=== PATIENT | male | born 1965 ===

== ENCOUNTER 2021-03-27 07:59 | Observation (INO) | payer BC ==
[2021-03-27] MEDS ORDERED: Ondansetron 4 MG/2 ML SDV IVPUSH ONE (08:06)
[2021-03-27] MEDS ORDERED: HYDROmorphone 1 MG/ML Syringe IVPUSH ONE (08:07)
[2021-03-27] MEDS ORDERED: fentaNYL 100 MCG/2 ML SDV IVPUSH ONE (08:37)
--- NOTE | 2021-03-27 08:42 | EDM.PDOC ---
ED HPI GENERAL MEDICAL PROBLEM - General Stated Complaint: BROKE RIGHT ARM Time Seen by Provider: 03/27/21 08:15 Source of Information: Reports: Patient History Limitations: Reports: No Limitations - History of Present Illness INITIAL COMMENTS - FREE TEXT/NARRATIVE: ED ambulatory c/o pain to right arm, shoulder, tripped over cords yesterday fell landing on right shoulder, No loss of consciousness. Severe pain, crawled to couch, has not been able to move arm since fall. Muscle spasms shoulder to neck and back with movement. No prior injury. Denies significant medical hx. Energy drink this am, no solids. Occasional smoker. No home medication Right Shoulder Pain Score (Numeric/FACES): 10 - Related Data Allergies Allergy/AdvReac Type Severity Reaction Status Date / Time No Known Allergies Allergy Verified 03/27/21 08:18 Home Meds: Home Meds . [No Known Home Meds] 03/27/21 [History] Past Medical History - Past Health History Medical/Surgical History: Denies Medical/Surgical History Social & Family History - Tobacco Use Tobacco Use Status *Q: Current Status Unknown - Caffeine Use Caffeine Use: Reports: None - Recreational Drug Use Recreational Drug Use: No Review of Systems - Review of Systems Review Of Systems: Comprehensive ROS is negative, except as noted in HPI. ED EXAM, GENERAL - Physical Exam Exam: See Below Exam Limited By: No Limitations General Appearance: Alert, Moderate Distress, Other (pale diaphoretic) Eye Exam: Bilateral Eye: EOMI Ears: Normal External Exam Nose: Normal Inspection Head: Other (superficial transverse laceration left eyebrow) Neck: Non-Tender Respiratory/Chest: No Respiratory Distress, Lungs Clear, Normal Breath Sounds Cardiovascular: Normal Peripheral Pulses, Regular Rate, Rhythm, Tachycardia GI/Abdominal: Normal Bowel Sounds Back Exam: Paraspinal Tenderness ( right upper , ). No: Vertebral Tenderness Extremities: Arm Pain (right upper deformity right shoulder), Other (ecchymosis right upper arm, ). No: Normal Range of Motion Neurological: Alert, Oriented, Normal Cognition Psychiatric: Normal Affect, Normal Mood Skin Exam: Warm, Dry, Intact Course - Vital Signs Last Recorded V/S: Last Vital Signs Temp 98 F 03/30/21 04:00 Pulse 72 03/30/21 04:00 Resp 20 03/30/21 04:00 BP 144/62 H 03/30/21 04:00 Pulse Ox 99 03/30/21 04:00 - Orders/Labs/Meds Orders: Medication Orders Acetaminophen (Acetaminophen 325 Mg Tab) 650 mg PO Q6H PRN PRN Reason: Pain Ascorbic Acid (Ascorbic Acid 500 Mg Tab) 500 mg PO DAILY [facility] Last Admin: 03/29/21 08:29 Dose: 500 mg Documented by: Admin: 03/28/21 12:50 Dose: 500 mg Documented by: PANFILO Ferrous Sulfate (Ferrous Sulfate 325 Mg Tab) 325 mg PO BIDMEALS [facility] Last Admin: 03/29/21 17:30 Dose: 325 mg Documented by: Admin: 03/29/21 08:29 Dose: 325 mg Documented by: Admin: 03/28/21 17:19 Dose: 325 mg Documented by: PANFILO Hydralazine HCl (Hydralazine 25 Mg Tab) 50 mg PO Q8H [facility] Last Admin: 03/29/21 23:49 Dose: 50 mg Documented by: Admin: 03/29/21 15:31 Dose: 50 mg Documented by: Admin: 03/29/21 07:46 Dose: 50 mg Documented by: JULIO Oxycodone/Acetaminophen (Acetaminophen/Oxycodone 325-5 Mg Tab) 1 tab PO Q4H PRN PRN Reason: Pain (moderate 4-6) Last Admin: 03/29/21 22:12 Dose: 1 tab Documented by: LUCÍA Oxycodone/Acetaminophen (Acetaminophen/Oxycodone 325-5 Mg Tab) 2 tab PO Q4H PRN PRN Reason: Pain (severe 7-10) Last Admin: 03/30/21 02:24 Dose: 2 tab Documented by: Admin: 03/29/21 18:05 Dose: 2 tab Documented by: Admin: 03/29/21 14:04 Dose: 2 tab Documented by: Admin: 03/29/21 10:05 Dose: 2 tab Documented by: JULIO Senna/Docusate Sodium (Docusate Sodium/Sennosides 50-8.6 Mg Tab) 2 tab PO BEDTIME [facility] Last Admin: 03/29/21 22:12 Dose: 2 tab Documented by: Admin: 03/28/21 21:18 Dose: 2 tab Documented by: Admin: 03/27/21 21:37 Dose: 2 tab Documented by: LUCÍA Sodium Chloride (Sodium Chloride 0.9% 10 Ml Syringe) 10 ml FLUSH ASDIRECTED PRN PRN Reason: Keep Vein Open Last Admin: 03/28/21 08:08 Dose: 10 ml Documented by: Admin: 03/28/21 05:40 Dose: 10 ml Documented by: Admin: 03/28/21 01:05 Dose: 10 ml Documented by: Admin: 03/27/21 21:42 Dose: 10 ml Documented by: LUCÍA Labs: Laboratory Tests 03/27/21 03/27/21 Range/Units 09:17 09:17 WBC 12.6 H (5.0-10.0) 10^3/uL RBC 5.01 (4.6-6.2) 10^6/uL Hgb 10.9 L (14.0-18.0) g/dL Hct 35.6 L (40.0-54.0) % MCV 71.1 L (80-100) fL MCH 21.8 L (27.0-34.0) pg MCHC 30.6 L (33.0-35.0) g/dL Plt Count 267 (150-450) 10^3/uL Neut % (Auto) 72.3 (42.2-75.2) % Lymph % (Auto) 11.0 L (20.5-50.1) % Citrus % (Auto) 16.0 H (2-8) % Eos % (Auto) 0.2 L (1.0-3.0) % Baso % (Auto) 0.5 (0.0-1.0) % Sodium 136 (136-145) mmol/L Potassium 4.0 (3.5-5.1) mmol/L Chloride 100 (98-107) mmol/L Carbon Dioxide 22 (21-32) mmol/L Anion Gap 18.0 H (7-13) mEq/L BUN 17 (7-18) mg/dL Creatinine 1.41 H (0.70-1.30) mg/dL Est Cr Clr Drug Dosing 65.32 mL/min Estimated GFR (MDRD) 52 BUN/Creatinine Ratio 12.1 (No establ ref range) Glucose 135 H (70-99) mg/dL Calcium 8.6 (8.5-10.1) mg/dL Total Bilirubin 1.3 H (0.2-1.0) mg/dL AST 32 (15-37) U/L ALT 45 (16-63) U/L Alkaline Phosphatase 73 (46-116) U/L Troponin I < 0.017 (0.000-0.056) ng/mL Total Protein 8.0 (6.4-8.2) g/dL Albumin 3.7 (3.4-5.0) g/dL Globulin 4.3 Albumin/Globulin Ratio 0.9 Meds: Medications Generic Name Dose Route Start Last Admin Trade Name Freq PRN Reason Stop Dose Admin Acetaminophen 650 mg 03/29/21 16:19 Acetaminophen 325 Mg Tab PO Q6H PRN Pain Ascorbic Acid 500 mg 03/28/21 11:30 03/29/21 08:29 Ascorbic Acid 500 Mg Tab PO 500 mg DAILY [facility] Administration Ferrous Sulfate 325 mg 03/28/21 18:00 03/29/21 17:30 Ferrous Sulfate 325 Mg Tab PO 325 mg BIDMEALS [facility] Administration Hydralazine HCl 50 mg 03/29/21 07:30 03/29/21 23:49 Hydralazine 25 Mg Tab PO 50 mg Q8H [facility] Administration Oxycodone/Acetaminophen 1 tab 03/29/21 07:10 03/29/21 22:12 Acetaminophen/Oxycodone 325-5 Mg Tab PO 1 tab Q4H PRN Administration Pain (moderate 4-6) Oxycodone/Acetaminophen 2 tab 03/29/21 07:11 03/30/21 02:24 Acetaminophen/Oxycodone 325-5 Mg Tab PO 2 tab Q4H PRN Administration Pain (severe 7-10) Senna/Docusate Sodium 2 tab 03/27/21 21:00 03/29/21 22:12 Docusate Sodium/Sennosides 50-8.6 Mg Tab PO 2 tab BEDTIME [facility] Administration Sodium Chloride 10 ml 03/27/21 13:41 03/28/21 08:08 Sodium Chloride 0.9% 10 Ml Syringe FLUSH 10 ml ASDIRECTED PRN Administration Keep Vein Open Discontinued Medications Generic Name Dose Route Start Last Admin Trade Name Freq PRN Reason Stop Dose Admin Acetaminophen 975 mg 03/27/21 10:45 03/28/21 03:07 Acetaminophen 325 Mg Tab PO Not Given Q8H [facility] Acetaminophen 975 mg 03/28/21 06:00 03/29/21 05:58 Acetaminophen 325 Mg Tab PO 975 mg Q8H [facility] Administration Cyclobenzaprine HCl 10 mg 03/27/21 10:01 03/27/21 10:09 Cyclobenzaprine 10 Mg Tab PO 03/27/21 10:02 10 mg ONETIME ONE Administration Enoxaparin Sodium 40 mg 03/28/21 09:00 03/28/21 08:35 Enoxaparin 40 Mg/0.4 Ml Syringe SUBCUT 40 mg DAILY [facility] Administration Fentanyl 25 mcg 03/27/21 08:37 03/27/21 08:45 Fentanyl 100 Mcg/2 Ml Sdv IVPUSH 03/27/21 08:38 25 mcg ONETIME ONE Administration Hydromorphone HCl 1 mg 03/27/21 08:07 03/27/21 08:17 Hydromorphone 1 Mg/Ml Syringe IVPUSH 03/27/21 08:08 1 mg ONETIME ONE Administration Hydromorphone HCl 0.5 mg 03/27/21 10:43 03/28/21 22:46 Hydromorphone 1 Mg/Ml Syringe IVPUSH 0.5 mg Q2H PRN Administration rescue pain Hydromorphone HCl 6 mg 03/27/21 10:43 03/28/21 16:21 Hydromorphone 2 Mg Tab PO 6 mg Q4H PRN Administration Pain (severe 7-10) Hydromorphone HCl 4 mg 03/27/21 10:43 Hydromorphone 4 Mg Tab PO Q4H PRN Pain (moderate 4-6) Hydromorphone HCl 6 mg 03/28/21 19:45 03/29/21 06:00 Hydromorphone 4 Mg Tab PO 6 mg Q4H PRN Administration Pain (severe 7-10) Sodium Chloride 1,000 mls @ 100 mls/hr 03/28/21 07:15 03/28/21 19:39 Normal Saline IV 100 mls/hr ASDIRECTED [facility] Administration Ibuprofen 600 mg 03/27/21 20:30 03/28/21 19:49 Ibuprofen 600 Mg Tab PO 600 mg Q4H PRN Administration Pain Ondansetron HCl 4 mg 03/27/21 08:06 03/27/21 08:16 Ondansetron 4 Mg/2 Ml Sdv IVPUSH 03/27/21 08:07 4 mg ONETIME ONE Administration - Re-Assessments/Exams Free Text/Narrative Re-Assessment/Exam: 03/27/21 09:[address] Lau, sling Ortho follow up in clinic this week [phone] Departure - Departure Time of Disposition: 10:14 Disposition: Refer to Observation Condition: Good Clinical Impression: Pain, Muscle spasm Fracture, humerus closed Qualifiers: Encounter type: initial encounter Humerus Location: proximal Fracture morphology: other fracture Fracture alignment: displaced Laterality: right Qualified Code(s): S42.291A - Other displaced fracture of upper end of right humerus, initial encounter for closed fracture - Discharge Information *PRESCRIPTION DRUG MONITORING PROGRAM REVIEWED*: No *COPY OF PRESCRIPTION DRUG MONITORING REPORT IN PATIENT VINAYAK: No Sepsis Event Note (ED) - Evaluation Sepsis Screening Result: No Definite Risk
--- NOTE | 2021-03-27 08:58 | CR ---
PROCEDURE INFORMATION: Exam: XR Right Shoulder Exam date and time: 03/27/2021 8:25 AM Age: 55 years old Clinical indication: Injury or trauma; Fall; Blunt trauma (contusions or hematomas); Shoulder; Right; Additional info: Fall, yesterday, pain bruise, swollen TECHNIQUE: Imaging protocol: XR Right shoulder. Views: 2 or more views. COMPARISON: No relevant prior studies available. FINDINGS: Bones/joints: Comminuted displaced fracture of the head and neck of the right humerus. The humeral head fragment is rotated and displaced posteriorly and laterally. The bones are demineralized. Soft tissues: Normal. IMPRESSION: Comminuted displaced fracture of the head and neck of the right humerus. The the
[2021-03-27 09:49] LABS: CHLORIDE,CL 100 mmol/L (98-107); SODIUM,NA 136 mmol/L (136-145)
--- NOTE | 2021-03-27 09:55 | CT ---
PROCEDURE INFORMATION: Exam: CT Right Upper Extremity Without Contrast, Shoulder Exam date and time: 03/27/2021 9:38 AM Age: 55 years old Clinical indication: Injury or trauma; Fall; Blunt trauma (contusions or hematomas); Shoulder; Right; Injury date: 03/27/2021; Additional info: Fall FX humerus TECHNIQUE: Imaging protocol: CT of the Right upper extremity without contrast was performed. Exam focused on the shoulder. Radiation optimization: All CT scans at this facility use at least one of these dose optimization techniques: automated exposure control; mA and/or kV adjustment per patient size (includes targeted exams where dose is matched to clinical indication); or iterative reconstruction. COMPARISON: CR Shoulder Comp Rt 03/27/2021 8:25 AM FINDINGS: Bones/joints: Severely comminuted and displaced fracture head and neck right humerus. The humeral head fragment containing the articular surface is rotated posteriorly and inferiorly. The humeral shaft fragment is slightly impacted with varus angulation across the fracture. Bones are demineralized. Soft tissues: Diffuse soft tissue edema right shoulder arm, and chest wall. IMPRESSION: Severely comminuted and displaced fracture head and neck of right humerus.
[2021-03-27] MEDS ORDERED: Cyclobenzaprine 10 MG Tab PO ONE (10:01)
[2021-03-27] MEDS: Acetaminophen 325 MG Tab PO SCH ×2 (11:52→18:16)
[2021-03-27] MEDS: HYDROmorphone 2 MG Tab PO PRN ×3 (12:04→23:44)
--- NOTE | 2021-03-27 18:58 | PCM.HP ---
H&P History of Present Illness - General Date of Service: 03/27/21 Admit Problem/Dx: Admission Diagnosis/Problem Admission Diagnosis/Problem Closed fracture of head of humerus - History of Present Illness Initial Comments - Free Text/Narative: 55M who denies any pmh p/w right arm pain. Pt states he suffered a mechanical fall while doing spring cleaning. He fell onto his right arm. Denies LOC or head trauma. There is no pain in any other place. ED evaluation found a comminuted and displaced fracture of the right humeral head. ED provider d/w Dr Sid Alan and at his recommendation pt was placed in a sling and asked to follow up next week to schedule surgery. Pt was c/o intractable pain and was placed on observation. Right Shoulder Pain Score (Numeric/FACES): 10 - Related Data Allergies/Adverse Reactions: Allergies Allergy/AdvReac Type Severity Reaction Status Date / Time No Known Allergies Allergy Verified 03/27/21 08:18 Home Medications: Home Meds . [No Known Home Meds] 03/27/21 [History] Past Medical History - Past Health History Medical/Surgical History: Denies Medical/Surgical History - Infectious Disease History Infectious Disease History: Reports: None Social & Family History - Family History Family Medical History: No Pertinent Family History - Tobacco Use Tobacco Use Status *Q: Current Some Day Tobacco User Years of Tobacco use: 20 Packs/Tins Daily: 0.5 Second Hand Smoke Exposure: No - Caffeine Use Caffeine Use: Reports: Coffee - Recreational Drug Use Recreational Drug Use: No H&P Review of Systems - Review of Systems: Review Of Systems: See Below General: Denies: Fever HEENT: Denies: Headaches Pulmonary: Denies: Shortness of Breath, Cough, Sputum Cardiovascular: Denies: Chest Pain Gastrointestinal: Denies: Abdominal Pain, Diarrhea, Nausea, Vomiting Genitourinary: Denies: Dysuria Musculoskeletal: Reports: Arm Pain (right). Denies: Neck Pain Skin: Denies: Jaundice Psychiatric: Denies: Confusion Neurological: Denies: Dizziness Hematologic/Lymphatic: Denies: Easy Bleeding Exam - Exam Exam: See Below - Vital Signs Vital Signs: Last Vital Signs Temp 99.7 F 03/27/21 16:33 Pulse 85 03/27/21 16:33 Resp 12 03/27/21 16:33 BP 139/94 H 03/27/21 16:33 Pulse Ox 98 05/29/21 16:33 Weight: 218 lb 9.6 oz - Exam Quality Assessment: No: Supplemental Oxygen General: Alert, Oriented HEENT: Conjunctiva Clear Neck: Supple Lungs: Clear to Auscultation, Normal Respiratory Effort Cardiovascular: Regular Rate, Regular Rhythm GI/Abdominal Exam: Normal Bowel Sounds, Soft, Non-Tender, No Distention Back Exam: Normal Inspection Extremities: No Pedal Edema, Other (RUE in splint, ROM limited due to pain) Skin: Warm, Dry, Intact Neurological: Cranial Nerves Intact Neuro Extensive - Mental Status: Alert, Oriented x3 Neuro Extensive - Motor, Sensory, Reflexes: No: Tremor Psychiatric: Alert, Normal Affect, Normal Mood - Patient Data Lab Results Last 24 hrs: Laboratory Results - last 24 hr 03/27/21 03/27/21 03/27/21 Range/Units 09:17 09:17 10:17 WBC 12.6 H (5.0-10.0) 10^3/uL RBC 5.01 (4.6-6.2) 10^6/uL Hgb 10.9 L (14.0-18.0) g/dL Hct 35.6 L (40.0-54.0) % MCV 71.1 L (80-100) fL MCH 21.8 L (27.0-34.0) pg MCHC 30.6 L (33.0-35.0) g/dL Plt Count 267 (150-450) 10^3/uL Neut % (Auto) 72.3 (42.2-75.2) % Lymph % (Auto) 11.0 L (20.5-50.1) % Mason % (Auto) 16.0 H (2-8) % Eos % (Auto) 0.2 L (1.0-3.0) % Baso % (Auto) 0.5 (0.0-1.0) % Sodium 136 (136-145) mmol/L Potassium 4.0 (3.5-5.1) mmol/L Chloride 100 (98-107) mmol/L Carbon Dioxide 22 (21-32) mmol/L Anion Gap 18.0 H (7-13) mEq/L BUN 17 (7-18) mg/dL Creatinine 1.41 H (0.70-1.30) mg/dL Est Cr Clr Drug Dosing 65.32 mL/min Estimated GFR (MDRD) 52 BUN/Creatinine Ratio 12.1 (No establ ref range) Glucose 135 H (70-99) mg/dL Calcium 8.6 (8.5-10.1) mg/dL Total Bilirubin 1.3 H (0.2-1.0) mg/dL AST 32 (15-37) U/L ALT 45 (16-63) U/L Alkaline Phosphatase 73 (46-116) U/L Troponin I < 0.017 (0.000-0.056) ng/mL Total Protein 8.0 (6.4-8.2) g/dL Albumin 3.7 (3.4-5.0) g/dL Globulin 4.3 Albumin/Globulin Ratio 0.9 SARS-CoV-2 RNA (DONALDO) Negative (NEGATIVE) Result Diagrams: 03/27/21 09:17 03/27/21 09:17 Problem List Initiated/Reviewed/Updated: Yes Orders Last 24hrs: Active Orders 24 hr Category Date Time Status Admission Diagnosis [ADT] Stat ADT 03/27/21 10:06 Ordered Admission Status [Patient Status] [ADT] Routine ADT 03/27/21 10:06 Active Patient Status [ADT] Routine ADT 03/27/21 10:44 Active Activity as Tolerated [RC] .Routine Care 03/27/21 16:59 Active Oxygen Therapy [RC] PRN Care 03/27/21 10:44 Active VTE/DVT Education [RC] PER UNIT ROUTINE Care 03/27/21 10:44 Active Vital Signs [RC] 00,04,08,12,16,20 Care 03/27/21 10:44 Active OT Evaluation and Treatment [CONS] Routine Cons 03/27/21 10:43 Active PT Evaluation and Treatment [CONS] Routine Cons 03/27/21 10:43 Active Regular Diet [DIET] Diet 03/27/21 Lunch Active Acetaminophen [TylenoL] Med 03/27/21 10:45 Active 975 mg PO Q8H Docusate Sodium/Sennosides [Senna Plus] Med 03/27/21 21:00 Active 2 tab PO BEDTIME Enoxaparin [Lovenox] Med 03/28/21 09:00 Active 40 mg SUBCUT DAILY HYDROmorphone [Dilaudid] Med 03/27/21 10:43 Active 0.5 mg IVPUSH Q2H PRN HYDROmorphone [Dilaudid] Med 03/27/21 10:43 Active 4 mg PO Q4H PRN HYDROmorphone [Dilaudid] Med 03/27/21 10:43 Active 6 mg PO Q4H PRN Sodium Chloride 0.9% [Saline Flush] Med 03/27/21 13:41 Active 10 ml FLUSH ASDIRECTED PRN Saline Lock Insert [OM.PC] Routine Oth 03/27/21 13:41 Ordered Resuscitation Status Routine Resus Stat 03/27/21 10:43 Ordered Medication Orders Acetaminophen (Acetaminophen 325 Mg Tab) 975 mg PO Q8H [facility] Last Admin: 03/27/21 18:16 Dose: 975 mg Documented by: Admin: 03/27/21 11:52 Dose: 975 mg Documented by: MESFIN Enoxaparin Sodium (Enoxaparin 40 Mg/0.4 Ml Syringe) 40 mg SUBCUT DAILY [facility] Hydromorphone HCl (Hydromorphone 1 Mg/Ml Syringe) 0.5 mg IVPUSH Q2H PRN PRN Reason: rescue pain Hydromorphone HCl (Hydromorphone 2 Mg Tab) 6 mg PO Q4H PRN PRN Reason: Pain (severe 7-10) Last Admin: 03/27/21 18:21 Dose: 6 mg Documented by: [email or web address] Admin: 03/27/21 12:04 Dose: 6 mg Documented by: MESFIN Hydromorphone HCl (Hydromorphone 4 Mg Tab) 4 mg PO Q4H PRN PRN Reason: Pain (moderate 4-6) Senna/Docusate Sodium (Docusate Sodium/Sennosides 50-8.6 Mg Tab) 2 tab PO BEDTIME [facility] Sodium Chloride (Sodium Chloride 0.9% 10 Ml Syringe) 10 ml FLUSH ASDIRECTED PRN PRN Reason: Keep Vein Open Assessment/Plan Comment:: #right humeral head fracture - placed on obs for pain control - start scheduled tylenol and PO dilaudi w/ IV for rescue - if pain cannot be controlled he will need to be transferred for urgent surgical intervention rather than next week PPX - LMWH
[2021-03-27] MEDS: Sodium Chloride 0.9% 10 ML Syringe FLUSH PRN (21:42)
[2021-03-27] MEDS: HYDROmorphone 1 MG/ML Syringe IVPUSH PRN (21:43)
[2021-03-27] MEDS: Ibuprofen 600 MG Tab PO PRN (23:44)
[2021-03-28] MEDS: Sodium Chloride 0.9% 10 ML Syringe FLUSH PRN ×3 (01:05→08:08)
[2021-03-28] MEDS: HYDROmorphone 1 MG/ML Syringe IVPUSH PRN ×5 (01:06→22:46)
[2021-03-28] MEDS: Acetaminophen 325 MG Tab PO SCH ×4 (03:07→21:18)
[2021-03-28] MEDS: HYDROmorphone 2 MG Tab PO PRN ×3 (04:08→16:21)
[2021-03-28] MEDS: Ibuprofen 600 MG Tab PO PRN ×4 (05:38→19:49)
--- NOTE | 2021-03-28 07:20 | PCM.SN.2 ---
- Free Text/Narrative Note: START OF DOCTOR DALEMIS PROGRESS NOTE Subjective: The patient indicates that the pain of his right arm/right shoulder is well controlled. However, he indicates that he has difficulty with ambulation because the sling appears to pull on his arm/shoulder causing him pain. Overnight he denies fever, rigors, nausea, vomiting, cough, wheeze, abdominal pain, chest pain, dyspnea, or any other constitutional complaints. I explained to the patient his current medical condition and plan of care and have answered all of his questions Objective: General: -Alert -No acute distress -No dyspnea -No tachypnea Heart: -Regular rate -Regular rhythm -No murmurs -No gallops -No rubs Lungs: -No wheeze -No rhonchi -No rales Abdomen: -Normal bowel sounds in all four quadrants -No rebound -No guarding -No tenderness Extremities: -2/4 pulse in all four extremities -No clubbing -No cyanosis -No edema Additional Details / Additional Findings / Exceptions / Miscellaneous: Sensorium of bilateral upper extremities are equal and intact. The patient has 5 out of 5 bilateral upper extremity hand toggle press folder and feeder strength. Pertinent Laboratory Results / Pertinent Radiology Results / Pertinent Diagnostic Results / Pertinent Vital Signs: Vital sign stable Assessment / Plan: Right humerus comminuted and displaced fracture. Tylenol 975 mg p.o. every 8 hours. Continue as needed analgesia Microcytic anemia. Will monitor hemoglobin levels intermittently. Check serum ferritin, iron panel, fecal blood Acute renal insufficiency. Will monitor creatinine level intermittently. IV normal saline 100 mL/h Hyperbilirubinemia. Will monitor LFTs periodically with CMP. IV normal saline at one hundred and also hour Obesity. Patient will be counseled regarding lifestyle modification GI prophylaxis. Colace/senna: Two tabs p.o. nightly DVT prophylaxis. Lovenox 40 mg subcutaneously daily while monitoring hemoglobin levels Disposition: The patient may be a candidate for discharge on this day of March 28, 2021 depending on whether he is able to ambulate without pain END OF DOCTOR DALEMIS PROGRESS NOTE
[2021-03-28] MEDS: Sodium Chloride 0.9% 1,000 ML IV SCH ×2 (08:07→19:39)
[2021-03-28 08:11] LABS: ANION GAP 16.9 mEq/L (7-13)
[2021-03-28] MEDS ORDERED: Enoxaparin 40 MG/0.4 ML Syringe SUBCUT SCH (09:00)
[2021-03-28] MEDS: Ascorbic Acid 500 MG Tab PO SCH (12:50)
[2021-03-28] MEDS: Ferrous Sulfate 325 MG Tab PO SCH (17:19)
[2021-03-29] MEDS: Acetaminophen 325 MG Tab PO SCH (05:58)
[2021-03-29] MEDS ORDERED: Acetaminophen/oxyCODONE 325-5 MG Tab PO PRN (07:10)
--- NOTE | 2021-03-29 07:15 | PCM.SN.2 ---
- Free Text/Narrative Note: START OF DOCTOR DALEMIS PROGRESS NOTE Subjective: The patient currently complains of 8 out of 10 right arm/shoulder pain. Aside from this he endorses no complaints. He denies fever, rigors, nausea, vomiting, cough, wheeze, abdominal pain, chest pain, dyspnea, or any other constitutional complaints. I explained to the patient his current medical condition and plan of care and I have answered all his questions Objective: General: -Alert -No acute distress -No dyspnea -No tachypnea -Obese Heart: -Regular rate -Regular rhythm -No murmurs -No gallops -No rubs Lungs: -No wheeze -No rhonchi -No rales Abdomen: -Normal bowel sounds in all four quadrants -No rebound -No guarding -No tenderness Extremities: -2/4 pulse in all four extremities -No clubbing -No cyanosis -No edema Additional Details / Additional Findings / Exceptions / Miscellaneous: Sensorium of bilateral upper extremities are equal and intact. The patient has 5 out of 5 bilateral upper extremity hand cork wirer strength. Pertinent Laboratory Results / Pertinent Radiology Results / Pertinent Diagnostic Results / Pertinent Vital Signs: Blood pressure 148/88, pulse 75, hemoglobin 8.1, MCV 74.5 Assessment / Plan: Right humerus comminuted and displaced fracture. Neurovascular checks every 4 hours. Continue as needed analgesia Acute anemia/iron deficiency anemia. Will monitor hemoglobin levels intermittently. Fecal occult blood pending. Ferrous sulfate 305 mg p.o. twice daily plus vitamin C 500 mg p.o. daily Hypertension. Hydralazine 50 mg p.o. 3 times daily Acute renal insufficiency. Will monitor creatinine level intermittently. IV normal saline 100 mL/h Hyperbilirubinemia. Will monitor LFTs periodically with CMP. IV normal saline at one hundred and also hour Obesity. Patient will be counseled regarding lifestyle modification GI prophylaxis. Colace/senna: Two tabs p.o. nightly DVT prophylaxis. Bilateral SCD Disposition: My hope is to discharge the patient on this day of March 29, 2021 however he has had a significant drop in his hemoglobin over the last 48 hours. We will check hemoglobin level every 6 hours and if this remains stable he may potentially a candidate for discharge on this day of March 29, 2021. Also, I am monitoring the patient's creatinine as well END OF DOCTOR DALEMIS PROGRESS NOTE
[2021-03-29 07:25] LABS: ANION GAP 14.7 mEq/L (7-13); CHLORIDE,CL 103 mmol/L (98-107); SODIUM,NA 138 mmol/L (136-145)
[2021-03-29] MEDS: hydrALAZINE 25 MG Tab PO SCH ×3 (07:46→23:49)
[2021-03-29] MEDS: Ferrous Sulfate 325 MG Tab PO SCH ×2 (08:29→17:30)
[2021-03-29] MEDS: Ascorbic Acid 500 MG Tab PO SCH (08:29)
[2021-03-29] MEDS: Acetaminophen/oxyCODONE 325-5 MG Tab PO PRN ×3 (10:05→18:05)
[2021-03-29] MEDS ORDERED: Acetaminophen 325 MG Tab PO PRN (16:19)
[2021-03-30] MEDS: Acetaminophen/oxyCODONE 325-5 MG Tab PO PRN ×2 (02:24→08:45)
--- NOTE | 2021-03-30 07:11 | PCM.SN.2 ---
- Free Text/Narrative Note: START OF DOCTOR EMAMIS DISCHARGE SUMMARY Date of Admission: March 27, 2021 Date of Discharge: 7:09 AM on March 30, 2021 Primary Diagnosis: Right humerus comminuted and displaced fracture Secondary Diagnosis: Acute anemia/iron deficiency anemia Hypertension Acute renal insufficiency, resolved Hyperbilirubinemia, resolved Obesity Consultations: None Condition on Discharge: Fair Disposition: The patient will be advised to follow-up with orthopedic surgery within 1 week of discharge for assessment of right humerus comminuted and displaced fracture The patient will require check of hemoglobin 40s post discharge for diagnosis of anemia Discharge Medications: Hydralazine 75 mg p.o. every 8 hours Ferrous sulfate 325 mg p.o. twice daily Vitamin C 500 mg p.o. daily Percocet 5/325 m-2 tabs p.o. every 4 hours as needed pain. Quantity 30. 0 refills END OF DOCTOR EMAMIS DISCHARGE SUMMARY
[2021-03-30 07:29] LABS: ANION GAP 15.7 mEq/L (7-13); CHLORIDE,CL 103 mmol/L (98-107); SODIUM,NA 139 mmol/L (136-145)
[2021-03-30] MEDS ORDERED: hydrALAZINE 25 MG Tab PO SCH (08:00)
[2021-03-30] MEDS: Ferrous Sulfate 325 MG Tab PO SCH (08:40)
[2021-03-30] MEDS: Ascorbic Acid 500 MG Tab PO SCH (08:40)
== END 2021-03-30 09:30 | disposition home or self-care (01) ==
LOC: DL.ED 07:59 → DL.MS 10:06
PROVIDERS: ADMIT Internal Medicine; ATTEND Internal Medicine
DX: S42.291A Other displaced fracture of upper end of right humerus, initial encounter for closed fracture (principal); D50.9 Iron deficiency anemia, unspecified; I10 Essential (primary) hypertension; E66.9 Obesity, unspecified; Z20.822 Contact with and (suspected) exposure to COVID-19; W19.XXXA Unspecified fall, initial encounter; Z68.28 Body mass index [BMI] 28.0-28.9, adult
CPT/HCPCS: 36415; 73030-RT; 73200-RT; 80053; 82728; 83540; 83550; 84484; 85018; 85025; 99284; A9270-GY; J1170; J1650; J2405; J3010; J7030; U0002

== ENCOUNTER 2023-01-09 16:33 | Observation (INO) | payer BC ==
[2023-01-09] MEDS ORDERED: Sodium Chloride 0.9% 1,000 ML IV ONE ×2 (16:51→17:44)
[2023-01-09 17:26] LABS: ANION GAP 27.6 mEq/L (7-13); CHLORIDE,CL 95 mmol/L (98-107); SODIUM,NA 131 mmol/L (136-145)
[2023-01-09 17:36] LABS: ESTIMATED GFR 43 mL/min (>=60)
[2023-01-09] MEDS ORDERED: Diphtheria,Pertussis(Acell),Tetanus Vaccine 0.5 ML Syringe IM ONE (18:08)
[2023-01-09] MEDS ORDERED: Docusate Sodium 100 MG Cap PO PRN (20:26)
[2023-01-09] MEDS ORDERED: Ondansetron 4 MG/2 ML SDV IVPUSH PRN (20:26)
[2023-01-09] MEDS ORDERED: Sodium Chloride 0.9% 1,000 ML IV SCH (20:30)
[2023-01-09] MEDS ORDERED: Enoxaparin 40 MG/0.4 ML Syringe SUBCUT SCH (21:00)
[2023-01-09] MEDS: Acetaminophen/HYDROcodone 325-5 MG Tab PO PRN (21:48)
[2023-01-10] MEDS: Acetaminophen 325 MG Tab PO PRN ×4 (02:36→19:17)
[2023-01-10] MEDS: Acetaminophen/HYDROcodone 325-5 MG Tab PO PRN ×3 (02:36→19:18)
[2023-01-10 04:13] LABS: AMPHETAMINES,URINE NEGATIVE (NEGATIVE); BARBITURATES,URINE NEGATIVE (NEGATIVE); BENZODIAZEPINE,URINE NEGATIVE (NEGATIVE); MDMA (ECSTASY), URINE NEGATIVE (NEGATIVE); METHADONE,URINE NEGATIVE (NEGATIVE); METHAMPHETAMINES,URINE NEGATIVE (NEGATIVE); OPIATES,URINE POSITIVE (NEGATIVE); OXYCODONE,URINE NEGATIVE (NEGATIVE); PHENCYCLIDINE,URINE NEGATIVE (NEGATIVE); TCA,URINE NEGATIVE (NEGATIVE)
[2023-01-10 07:37] LABS: ANION GAP 14.5 mEq/L (7-13)
[2023-01-10] MEDS: HYDROmorphone 0.5 MG/0.5 ML Syringe IVPUSH PRN ×2 (11:10→17:02)
[2023-01-10] MEDS ORDERED: Enoxaparin 40 MG/0.4 ML Syringe SUBCUT SCH (21:00)
[2023-01-10] MEDS ORDERED: HYDROmorphone 0.5 MG/0.5 ML Syringe IVPUSH ONE (22:05)
[2023-01-11] MEDS: Acetaminophen/HYDROcodone 325-5 MG Tab PO PRN (00:03)
[2023-01-11] MEDS ORDERED: hydrALAZINE 20 MG/ML SDV IVPUSH PRN (09:51)
[2023-01-11] MEDS ORDERED: Pneumococcal 20-Valent Conjug 0.5 ML Syringe IM ONE (10:15)
[2023-01-11] MEDS ORDERED: amLODIPine 5 MG Tab PO ONE (10:37)
[2023-01-11] MEDS ORDERED: cloNIDine 0.1 MG Tab PO ONE (10:37)
== END 2023-01-11 11:57 | disposition home or self-care (01) ==
LOC: DL.ED 16:33 → DL.MS 19:44 → UNDODISOB 01-11 11:57
PROVIDERS: ADMIT Internal Medicine; ATTEND Internal Medicine
DX: T68.XXXA Hypothermia, initial encounter (principal); T33.522A Superficial frostbite of left hand, initial encounter; T33.521A Superficial frostbite of right hand, initial encounter; R74.02 Elevation of levels of lactic acid dehydrogenase [LDH]; D50.9 Iron deficiency anemia, unspecified; I10 Essential (primary) hypertension; F17.210 Nicotine dependence, cigarettes, uncomplicated; Z23 Encounter for immunization; X31.XXXA Exposure to excessive natural cold, initial encounter; W19.XXXA Unspecified fall, initial encounter
CPT/HCPCS: 36415; 80048; 80053; 80305-QW; 80307; 81001; 82550; 83605; 84484; 85025; 86140; 90471; 90677; 90686; 90715; 93005; 93010; 96360; 96361; 96372; 96374; 96376; 97161-GP; 97165-GO; 99222; 99232; 99238; 99284; 99284-25; A9270-GY; G0008; G0009; G0378; J1170; J1650; J7030

== ENCOUNTER 2023-07-10 14:57 | Inpatient (IN) | payer BC, MEDICAID ==
[~2023-07-10 14:57] MED LIST: Sodium Chloride 0.9% 10 ML Syringe FLUSH PRN
[2023-07-10 15:13] LABS: HEMATOCRIT 32.9 % (40.0-54.0); HEMOGLOBIN 9.8 g/dL (14.0-18.0); MEAN CORPUSCULAR HEMOGLOBIN 23.1 pg (27.0-34.0); MEAN CORPUSCULAR HGB CONC 29.8 g/dL (33.0-35.0); MEAN CORPUSCULAR VOLUME 77.6 fL (80-100); PLATELET COUNT,PLT 329 10^3/uL (150-450); RED BLOOD CELL COUNT 4.24 10^6/uL (4.6-6.2); WHITE BLOOD CELL COUNT,WBC 22.5 10^3/uL (5.0-10.0)
[2023-07-10 15:15] LABS: BASOPHILS PERCENT AUTO 0.1 % (0.0-1.0); EOSINOPHILS PERCENT AUTO 0.5 % (1.0-3.0); LYMPHOCYTES PERCENT AUTO 28.5 % (20.5-50.1); MONOCYTES PERCENT AUTO 10.3 % (2-8); NEUTROPHILS PERCENT AUTO 60.6 % (42.2-75.2)
[2023-07-10 15:29] LABS: AMYLASE 104 U/L (25-115); BAND PERCENT MAN 1 %; LIPASE 54 U/L (16-77); LYMPHOCYTES PERCENT MAN 23 % (20-50); MONOCYTES PERCENT MAN 10 % (2-8); SEG NEUTROPHILS PERCENT MAN 66 % (42-75)
[2023-07-10 15:35] LABS: B-TYPE NATRIURETIC PEPTIDE,BNP 559 pg/ml (0-100); INR 1.1 (0.9-1.2); PROTHROMBIN TIME 10.8 SEC (9.0-12.0)
[2023-07-10 15:52] LABS: APPEARANCE,URINE CLEAR (CLEAR); BILIRUBIN,URINE NEGATIVE (NEGATIVE); COLOR,URINE YELLOW (YELLOW); GLUCOSE,URINE 100 (NEGATIVE); KETONES,URINE 15 (NEGATIVE); LEUKOCYTE ESTERASE,URINE NEGATIVE (NEGATIVE); NITRITE,URINE NEGATIVE (NEGATIVE); OCCULT BLOOD,URINE TRACE-INTACT (NEGATIVE); PH,URINE 7.5 (5.0-9.0); PROTEIN,URINE 30 (NEGATIVE); UROBILINOGEN,URINE >=8.0 mg/dL (0.2-1.0)
[2023-07-10 15:53] LABS: LACTIC ACID 23.7 mmol/L (0.4-2.0)
[2023-07-10 16:02] LABS: BACTERIA,URINE MODERATE /HPF (0-FEW/HPF); EPITHELIAL CELLS,URINE FEW /HPF (NOT SEEN); MUCUS,URINE FEW /LPF (NOT SEEN); RBC,URINE 0-5 /HPF (0-5)
[2023-07-10 16:14] LABS: O2 DELIVERY DEVICE NASAL CANNULA
[2023-07-10 16:15] LABS: BASE EXCESS ARTERIAL -19 mmol/L ((-2)-(+3)); BICARBONATE,ARTERIAL 7.6 mmol/L (22-26); O2 SATURATION ARTERIAL 99 % (95-100); PH,ARTERIAL 7.23 (7.35-7.45); PO2 ARTERIAL 213 mmHg (70-100)
[2023-07-10 16:17] LABS: PCO2 ARTERIAL 19 mmHg (35-45)
[2023-07-10 16:18] LABS: ALLEN TEST POSITIVE
[2023-07-10] MEDS: Sodium Chloride 0.9% 1,000 ML IV ONE ×2 (16:19→19:56)
[2023-07-10 16:42] LABS: LACTIC ACID 15.6 mmol/L (0.4-2.0)
[2023-07-10 16:51] LABS: A/G RATIO 0.71; ALANINE AMINOTRANSFERASE,ALT 25 U/L (16-63); ALBUMIN 2.5 g/dL (3.4-5.0); ALKALINE PHOSPHATASE 67 U/L (46-116); ANION GAP 27.8 mEq/L (7-13); ASPARTATE AMNIOTRANSFERASE,AST 32 U/L (15-37); BILIRUBIN TOTAL 0.6 mg/dL (0.2-1.0); BLOOD UREA NITROGEN,BUN 35 mg/dL (7-18); BUN/CREATININE RATIO 23.3 (No establ ref range); CALCIUM 7.8 mg/dL (8.5-10.1); CARBON DIOXIDE,CO2 11 mmol/L (21-32); CHLORIDE,CL 103 mmol/L (98-107); EST CRCL DRUG DOSING (CG) 60.89 mL/min; ESTIMATED GFR 53 mL/min (>=60); GLUCOSE RANDOM 157 mg/dL (70-99); POTASSIUM,K 3.8 mmol/L (3.5-5.1); SODIUM,NA 138 mmol/L (136-145)
[2023-07-10 17:08] LABS: C-REACTIVE PROTEIN 2.62 ng/dL (<=0.30); ETHANOL BLOOD MEDICAL < 3 mg/dL (0)
[2023-07-10] MEDS ORDERED: Iopamidol 755 Mg/ML 100 ML Bottle IVPUSH ONE (17:31)
[2023-07-10 17:37] LABS: AMPHETAMINES,URINE NEGATIVE (NEGATIVE); BARBITURATES,URINE NEGATIVE (NEGATIVE); BENZODIAZEPINE,URINE NEGATIVE (NEGATIVE); MDMA (ECSTASY), URINE NEGATIVE (NEGATIVE); METHADONE,URINE NEGATIVE (NEGATIVE); METHAMPHETAMINES,URINE NEGATIVE (NEGATIVE); OPIATES,URINE NEGATIVE (NEGATIVE); OXYCODONE,URINE NEGATIVE (NEGATIVE); PHENCYCLIDINE,URINE NEGATIVE (NEGATIVE); TCA,URINE NEGATIVE (NEGATIVE)
[2023-07-10] MEDS ORDERED: Piperacillin/Tazobactam 4.5 GM in Sodium Chloride 0.9% 100 ML IV ONE (17:45)
[2023-07-10] MEDS ORDERED: cefTRIAXone 2 GM Vial IVPUSH ONE (17:47)
[2023-07-10] MEDS ORDERED: Ondansetron 4 MG Tab.DIS PO PRN (19:13)
[2023-07-10] MEDS ORDERED: Acetaminophen 325 MG Tab PO PRN (19:13)
[2023-07-10] MEDS ORDERED: Zolpidem 5 MG Tab PO PRN (19:13)
[2023-07-10] MEDS ORDERED: Sodium Chloride 0.9% 1,000 ML IV SCH ×2 (19:15→19:30)
[2023-07-10] MEDS ORDERED: Sodium Chloride 0.9% 1,000 ML IV ONE (21:45)
[2023-07-11 06:18] LABS: BASOPHILS PERCENT AUTO 0.2 % (0.0-1.0); HEMATOCRIT 21.2 % (40.0-54.0); LYMPHOCYTES PERCENT AUTO 9.2 % (20.5-50.1); MEAN CORPUSCULAR HEMOGLOBIN 23.1 pg (27.0-34.0); MEAN CORPUSCULAR HGB CONC 31.1 g/dL (33.0-35.0); MEAN CORPUSCULAR VOLUME 74.1 fL (80-100); MONOCYTES PERCENT AUTO 13.3 % (2-8); NEUTROPHILS PERCENT AUTO 77.3 % (42.2-75.2); PLATELET COUNT,PLT 154 10^3/uL (150-450); RED BLOOD CELL COUNT 2.86 10^6/uL (4.6-6.2); WHITE BLOOD CELL COUNT,WBC 8.2 10^3/uL (5.0-10.0)
[2023-07-11 06:24] LABS: HEMOGLOBIN 6.6 g/dL (14.0-18.0)
[2023-07-11] MEDS: Budesonide 0.5 MG/2 ML Neb Susp NEB SCH ×2 (06:26→07:50)
[2023-07-11] MEDS: Albuterol 0.083% 2.5 MG/3 ML Neb Soln NEB PRN ×3 (06:27→13:47)
[2023-07-11 06:31] LABS: ANION GAP 14.3 mEq/L (7-13); CALCIUM 7.3 mg/dL (8.5-10.1); CREATININE 1.26 mg/dL (0.70-1.30); EST CRCL DRUG DOSING (CG) 66.4 mL/min; POTASSIUM,K 3.3 mmol/L (3.5-5.1)
[2023-07-11] MEDS ORDERED: Furosemide 40 MG/4 ML VIAL IVPUSH ONE (09:21)
[2023-07-11] MEDS ORDERED: Potassium Chloride 10 MEQ Tab.ER PO SCH (09:30)
[2023-07-11 09:44] LABS: O2 DELIVERY DEVICE ROOM AIR
[2023-07-11 09:48] LABS: BASE EXCESS VENOUS -7.5 mmol/l ((-2)-(+3)); BICARBONATE,VENOUS 16 mmol/l (19-25); O2 SATURATION VENOUS 55.3 % (60-80); PCO2 VENOUS 27 mmHg (41-51); PH,VENOUS 7.39 (7.31-7.41); PO2 VENOUS 34 mmHg (35-42)
[2023-07-11 09:52] LABS: HEMATOCRIT 20.4 % (40.0-54.0); HEMOGLOBIN 6.3 g/dL (14.0-18.0)
[2023-07-11 10:31] LABS: FOLIC ACID 8.1 ng/mL (8.6-58.9); MAGNESIUM 2.2 mg/dL (1.8-2.4)
[2023-07-11] MEDS ORDERED: Furosemide 40 MG/4 ML VIAL IVPUSH PRN (10:31)
[2023-07-11 10:34] LABS: PERCENT FE SATURATION 3.4 % (20.0-50.0)
[2023-07-11 11:08] LABS: INR 1.1 (0.9-1.2); PROTHROMBIN TIME 11.3 SEC (9.0-12.0)
[2023-07-11] MEDS ORDERED: Pantoprazole 40 MG Vial IVPUSH STA (11:37)
[2023-07-11] MEDS ORDERED: Pantoprazole 40 MG Vial IVPUSH SCH (20:00)
== END 2023-07-11 15:30 | DRG 392 ==
LOC: DL.ED 14:57 → DL.MS 17:53
PROVIDERS: ADMIT Hospitalist; ATTEND Hospitalist
PROC: 4A033R1 Measurement of Arterial Saturation, Peripheral, Percutaneous Approach (ICD-10-PCS; 2023-07-10)
PROC: 30233N1 Transfusion of Nonautologous Red Blood Cells into Peripheral Vein, Percutaneous Approach (ICD-10-PCS; principal; 2023-07-11)
DX: A05.9 Bacterial foodborne intoxication, unspecified (principal); K92.2 Gastrointestinal hemorrhage, unspecified; D62 Acute posthemorrhagic anemia; N17.9 Acute kidney failure, unspecified; E87.20 Acidosis, unspecified; I95.89 Other hypotension; E86.1 Hypovolemia; E86.0 Dehydration; J44.9 Chronic obstructive pulmonary disease, unspecified; Z72.0 Tobacco use
CPT/HCPCS: 36415; 36430; 36600; 51702; 70450; 71260; 74177; 80048; 80053; 80179; 80305-QW; 80307; 81001; 82150; 82272; 82550; 82607; 82728; 82746; 82803; 83540; 83550; 83605; 83690; 83735; 83880; 84484; 85014; 85018; 85025; 85610; 86140; 86850; 86900; 86901; 86920; 86922; 87040; 93005; 93010; 94010; 94060; 94640; 94667; 94668; 94760; 99222; 99239; 99284; 99285; A9270-GY; C9113; J0696; J1940; J3490; J7030; J7613-GY; P9016; Q9967

== ENCOUNTER 2023-10-28 20:34 | Inpatient (IN) | payer MEDICAID ==
[2023-10-28 20:52] LABS: BASOPHILS PERCENT AUTO 0.2 % (0.0-1.0); EOSINOPHILS PERCENT AUTO 0.8 % (1.0-3.0); HEMATOCRIT 35.5 % (40.0-54.0); HEMOGLOBIN 10.8 g/dL (14.0-18.0); LYMPHOCYTES PERCENT AUTO 23.1 % (20.5-50.1); MEAN CORPUSCULAR HEMOGLOBIN 21.2 pg (27.0-34.0); MEAN CORPUSCULAR HGB CONC 30.4 g/dL (33.0-35.0); MEAN CORPUSCULAR VOLUME 69.6 fL (80-100); MONOCYTES PERCENT AUTO 14.7 % (2-8); NEUTROPHILS PERCENT AUTO 61.2 % (42.2-75.2); PLATELET COUNT,PLT 242 10^3/uL (150-450)
[2023-10-28 21:17] LABS: A/G RATIO 0.7; ALBUMIN 3.6 g/dL (3.4-5.0); ANION GAP 17.8 mEq/L (7-13); BUN/CREATININE RATIO 7.9 (No establ ref range); CALCIUM 9.2 mg/dL (8.5-10.1); CREATININE 1.27 mg/dL (0.70-1.30); EST CRCL DRUG DOSING (CG) 67.89 mL/min; POTASSIUM,K 3.8 mmol/L (3.5-5.1); PROTEIN TOTAL,TP 8.6 g/dL (6.4-8.2)
[2023-10-28 21:52] LABS: CORONAVIRUS COVID-19 NAA NEGATIVE (NEGATIVE); INFLUENZA A NAA NEGATIVE (NEGATIVE); INFLUENZA B NAA NEGATIVE (NEGATIVE); RESPIRATORY SYNCYTIAL VIR NAA NEGATIVE (NEGATIVE)
[2023-10-28] MEDS ORDERED: Iopamidol 755 Mg/ML 100 ML Bottle IVPUSH ONE (23:04)
[2023-10-28] MEDS ORDERED: Enoxaparin 80 MG/0.8 ML Syringe SUBCUT ONE (23:05)
[2023-10-29] MEDS ORDERED: Heparin Sodium/0.45% NaCl 25,000 UNITS/500 ML BAG IV SCH (01:45)
[2023-10-29] MEDS ORDERED: oxyCODONE 5 MG Tab PO PRN (02:11)
[2023-10-29] MEDS ORDERED: Docusate Sodium 100 MG Cap PO PRN (02:11)
[2023-10-29] MEDS ORDERED: Ondansetron 4 MG Tab.DIS PO PRN (02:11)
[2023-10-29 02:36] LABS: PROTHROMBIN TIME 10.4 SEC (9.0-12.0)
[2023-10-29] MEDS: Sodium Chloride 0.9% 1,000 ML IV SCH ×2 (03:13→19:14)
[2023-10-29] MEDS: Pantoprazole 40 MG Tab.CR PO SCH ×2 (07:39→16:10)
[2023-10-29] MEDS: Sucralfate Suspension 1 GM/10 ML Cup PO SCH ×3 (07:39→16:10)
[2023-10-29] MEDS: Enoxaparin 40 MG/0.4 ML Syringe SUBCUT SCH ×2 (09:53→21:22)
[2023-10-29] MEDS ORDERED: FLU (Fluarix Quad) QS2023-24(6MOS UP)/PF 60 MCG/0.5 ML Syringe IM ONE (10:00)
[2023-10-29] MEDS ORDERED: Warfarin 5 MG, Warfarin 2.5 MG PO SCH ×2 (14:00)
[2023-10-30] MEDS: Sodium Chloride 0.9% 1,000 ML IV SCH ×3 (03:14→20:05)
[2023-10-30] MEDS: Pantoprazole 40 MG Tab.CR PO SCH ×2 (06:19→15:46)
[2023-10-30] MEDS: Sucralfate Suspension 1 GM/10 ML Cup PO SCH ×3 (06:19→15:46)
[2023-10-30 06:47] LABS: BASOPHILS PERCENT AUTO 0.3 % (0.0-1.0); EOSINOPHILS PERCENT AUTO 3.3 % (1.0-3.0); HEMATOCRIT 25.4 % (40.0-54.0); HEMOGLOBIN 7.6 g/dL (14.0-18.0); LYMPHOCYTES PERCENT AUTO 32.6 % (20.5-50.1); MEAN CORPUSCULAR HEMOGLOBIN 21.3 pg (27.0-34.0); MEAN CORPUSCULAR HGB CONC 29.9 g/dL (33.0-35.0); MEAN CORPUSCULAR VOLUME 71.1 fL (80-100); MONOCYTES PERCENT AUTO 18.8 % (2-8); PLATELET COUNT,PLT 174 10^3/uL (150-450); RED BLOOD CELL COUNT 3.57 10^6/uL (4.6-6.2); WHITE BLOOD CELL COUNT,WBC 3.6 10^3/uL (5.0-10.0)
[2023-10-30 06:54] LABS: ANION GAP 12.7 mEq/L (7-13); CALCIUM 7.9 mg/dL (8.5-10.1); CREATININE 0.9 mg/dL (0.70-1.30); EST CRCL DRUG DOSING (CG) 98.64 mL/min; POTASSIUM,K 3.7 mmol/L (3.5-5.1); PROTHROMBIN TIME 10.6 SEC (9.0-12.0)
[2023-10-30] MEDS: Enoxaparin 40 MG/0.4 ML Syringe SUBCUT SCH ×2 (08:32→20:07)
[2023-10-30] MEDS ORDERED: Warfarin 5 MG Tab PO SCH (09:00)
[2023-10-30] MEDS ORDERED: Warfarin 5 MG, Warfarin 2.5 MG PO ONE ×2 (14:00)
[2023-10-31] MEDS: Sodium Chloride 0.9% 1,000 ML IV SCH ×3 (04:42→21:40)
[2023-10-31] MEDS: Acetaminophen 325 MG Tab PO PRN ×2 (04:46→22:50)
[2023-10-31] MEDS: Pantoprazole 40 MG Tab.CR PO SCH ×3 (04:46→15:16)
[2023-10-31] MEDS: Sucralfate Suspension 1 GM/10 ML Cup PO SCH ×4 (04:47→15:16)
[2023-10-31 06:32] LABS: HEMATOCRIT 24.2 % (40.0-54.0); MEAN CORPUSCULAR HEMOGLOBIN 20.7 pg (27.0-34.0); MEAN CORPUSCULAR HGB CONC 28.9 g/dL (33.0-35.0); MEAN CORPUSCULAR VOLUME 71.6 fL (80-100); PLATELET COUNT,PLT 148 10^3/uL (150-450); RED BLOOD CELL COUNT 3.38 10^6/uL (4.6-6.2); WHITE BLOOD CELL COUNT,WBC 3.9 10^3/uL (5.0-10.0)
[2023-10-31 06:37] LABS: BASOPHILS PERCENT AUTO 0.3 % (0.0-1.0); EOSINOPHILS PERCENT AUTO 1.8 % (1.0-3.0); LYMPHOCYTES PERCENT AUTO 30.4 % (20.5-50.1); MONOCYTES PERCENT AUTO 20.3 % (2-8); NEUTROPHILS PERCENT AUTO 47.2 % (42.2-75.2)
[2023-10-31 07:02] LABS: INR 1.1 (0.9-1.2); PROTHROMBIN TIME 11.6 SEC (9.0-12.0)
[2023-10-31] MEDS: Enoxaparin 40 MG/0.4 ML Syringe SUBCUT SCH ×2 (08:12→20:15)
[2023-10-31 08:48] LABS: BAND PERCENT MAN 6 %; EOSINOPHILS PERCENT MAN 1 % (1-3); LYMPHOCYTES PERCENT MAN 30 % (20-50); MONOCYTES PERCENT MAN 9 % (2-8); SEG NEUTROPHILS PERCENT MAN 54 % (42-75)
[2023-10-31] MEDS ORDERED: Warfarin 5 MG Tab PO ONE (14:00)
[2023-10-31] MEDS ORDERED: Warfarin 2.5 MG Tab PO ONE (15:52)
[2023-11-01] MEDS: Pantoprazole 40 MG Tab.CR PO SCH ×2 (05:17→16:02)
[2023-11-01] MEDS: Sucralfate Suspension 1 GM/10 ML Cup PO SCH ×3 (05:17→16:03)
[2023-11-01] MEDS: Sodium Chloride 0.9% 1,000 ML IV SCH (05:18)
[2023-11-01 07:18] LABS: INR 1.5 (0.9-1.2); PROTHROMBIN TIME 15.5 SEC (9.0-12.0)
[2023-11-01] MEDS: Enoxaparin 40 MG/0.4 ML Syringe SUBCUT SCH ×2 (08:38→21:27)
[2023-11-01] MEDS ORDERED: Warfarin 5 MG Tab PO ONE (14:00)
[2023-11-01] MEDS ORDERED: Warfarin 2.5 MG Tab PO ONE (14:00)
[2023-11-01 17:24] LABS: BASOPHILS PERCENT AUTO 0.3 % (0.0-1.0); HEMATOCRIT 28.5 % (40.0-54.0); HEMOGLOBIN 8.5 g/dL (14.0-18.0); LYMPHOCYTES PERCENT AUTO 24.4 % (20.5-50.1); MEAN CORPUSCULAR HEMOGLOBIN 21.2 pg (27.0-34.0); MEAN CORPUSCULAR HGB CONC 29.8 g/dL (33.0-35.0); MEAN CORPUSCULAR VOLUME 71.1 fL (80-100); MONOCYTES PERCENT AUTO 16.3 % (2-8); PLATELET COUNT,PLT 223 10^3/uL (150-450); RED BLOOD CELL COUNT 4.01 10^6/uL (4.6-6.2); WHITE BLOOD CELL COUNT,WBC 6.3 10^3/uL (5.0-10.0)
[2023-11-01] MEDS: Acetaminophen 325 MG Tab PO PRN (19:43)
[2023-11-02] MEDS: Acetaminophen 325 MG Tab PO PRN (00:08)
[2023-11-02] MEDS: Pantoprazole 40 MG Tab.CR PO SCH (05:05)
[2023-11-02] MEDS: Sucralfate Suspension 1 GM/10 ML Cup PO SCH ×2 (05:05→11:07)
[2023-11-02 06:34] LABS: INR 2.4 (0.9-1.2); PROTHROMBIN TIME 23.6 SEC (9.0-12.0)
[2023-11-02] MEDS: Enoxaparin 40 MG/0.4 ML Syringe SUBCUT SCH (08:26)
[2023-11-02] MEDS ORDERED: Warfarin 5 MG Tab PO ONE (14:00)
== END 2023-11-02 14:05 | disposition home or self-care (01) | DRG 176 ==
LOC: DL.ED 20:34 → DL.MS 10-29 01:24 → UNDOADMIN 10-29 01:24 → DL.MS 10-29 02:11
PROVIDERS: ADMIT Internal Medicine; ATTEND Internal Medicine
DX: I26.99 Other pulmonary embolism without acute cor pulmonale (principal); I82.412 Acute embolism and thrombosis of left femoral vein; I10 Essential (primary) hypertension; E78.5 Hyperlipidemia, unspecified; D50.9 Iron deficiency anemia, unspecified; K20.90 Esophagitis, unspecified without bleeding; Z91.148 Patient's other noncompliance with medication regimen for other reason
CPT/HCPCS: 0241U; 36415; 71045; 71260; 74177; 80048; 80053; 84484; 85025; 85379; 85610; 85730; 93005; 93970; 99285; A9270-GY; G0008; J1650; J7030; Q9967